=== PATIENT | male | born 1930 | race Caucasian/White ===

== ENCOUNTER 2018-02-15 00:09 | Inpatient (IN) | payer OTHER ==
[~2018-02-15] VITALS: Ht 170.2 cm; Wt 65.5 kg
[2018-02-15 00:47] LABS: BASOPHIL (%) 0.3 % (0-1); BASOPHIL COUNT 0.1 K/uL (0-0.1); EOSINOPHIL (%) 0 % (0-5); HEMATOCRIT 40.9 % (38.0-50.0); HEMOGLOBIN 13.7 G/DL (12.5-16.6); IMMATURE GRANULOCYTE (%) 0.6 % (0.0-0.7); LYMPHOCYTE (%) 2.3 % (15-42); LYMPHOCYTE COUNT 0.4 K/uL (1.0-2.8); MCH 30.2 PG (29.0-34.0); MCHC 33.5 G/DL (30.0-36.0); MCV 90.3 FL (86-99); MONOCYTE (%) 4.9 % (3-12); MONOCYTE COUNT 0.9 K/uL (0-0.8); NEUTROPHIL (%) 91.9 % (45-76); NEUTROPHIL COUNT 16.9 K/uL (1.8-6.4); PLATELET COUNT 409 K/uL (156-360); RBC DIS.WIDTH-CV 12.9 % (11.8-14.6); RBC DIS.WIDTH-SD 42.6 % (39-53); RED BLOOD COUNT 4.53 M/uL (4.00-5.50); WHITE BLOOD COUNT 18.4 K/uL (4.1-10.2)
[2018-02-15 00:56] LABS: CHLORIDE 103 mEq/L (99-109); POTASSIUM 4.3 mEq/L (3.7-5.4)
[2018-02-15 00:57] LABS: SODIUM 139 mEq/L (136-147)
[2018-02-15 00:58] LABS: GLUCOSE 129 mg/dL (70-99)
[2018-02-15 01:02] LABS: CREATININE 0.8 mg/dL (0.6-1.3); GFR ESTIMATE (CALCULATED) > 59 mL/min/ (58.99-99999)
[2018-02-15 01:03] LABS: UREA NITROGEN (BUN) 22 mg/dL (9-23)
[2018-02-15 01:08] LABS: TROP-I INTERPRETATION INDETERMINATE; TROPONIN-I 0.32 ng/mL (0.0-0.30)
[2018-02-15 02:08] LABS: CREATINE KINASE 844 IU/L (1-294)
[2018-02-15 02:22] LABS: APPEARANCE CLEAR ((CLEAR)); BILIRUBIN NEGATIVE; BLOOD SMALL; COLOR YELLOW ((YELLOW)); GLUCOSE (STRIP) NEGATIVE; KETONES 80; LEUKOCYTES NEGATIVE; NITRITE NEGATIVE; PROTEIN (STRIP) 30; SPECIFIC GRAVITY 1.016 (1.000-1.030); UROBILINOGEN 0.2 MG/DL (0.2-1.0)
[2018-02-15 02:29] LABS: BACTERIA NONE SEEN /HPF; EPITHELIAL CELLS RARE /HPF; MUCUS TRACE /LPF; UCUL ADDED? NO; WHITE BLOOD CELLS 0-5 /HPF (0-5)
[2018-02-15] MEDS ORDERED: LEVOTHYROXINE100 MCG PO (08:04)
[2018-02-15 16:05] VITALS: BP 100/57
[2018-02-15 19:43] VITALS: BP 100/52
[2018-02-15 23:37] VITALS: BP 110/50
[2018-02-16 03:20] VITALS: BP 102/61
[2018-02-16 07:49] VITALS: BP 128/65
[2018-02-16 11:58] VITALS: BP 126/703
[2018-02-16 12:25] LABS: BASOPHIL (%) 0.4 % (0-1); EOSINOPHIL (%) 2.5 % (0-5); EOSINOPHIL COUNT 0.3 K/uL (0-0.3); HEMATOCRIT 35.9 % (38.0-50.0); IMMATURE GRANULOCYTE (%) 0.4 % (0.0-0.7); LYMPHOCYTE (%) 8.8 % (15-42); LYMPHOCYTE COUNT 0.9 K/uL (1.0-2.8); MCH 30.2 PG (29.0-34.0); MCHC 32.3 G/DL (30.0-36.0); MCV 93.5 FL (86-99); MONOCYTE (%) 5.2 % (3-12); MONOCYTE COUNT 0.5 K/uL (0-0.8); NEUTROPHIL (%) 82.7 % (45-76); NEUTROPHIL COUNT 8.2 K/uL (1.8-6.4); PLATELET COUNT 339 K/uL (156-360); RBC DIS.WIDTH-CV 13.4 % (11.8-14.6); RBC DIS.WIDTH-SD 45.7 % (39-53); RED BLOOD COUNT 3.84 M/uL (4.00-5.50)
[2018-02-16 12:31] LABS: HEMOGLOBIN 11.6 G/DL (12.5-16.6)
[2018-02-16 12:55] LABS: CHLORIDE 109 MEQ/L (99-109); CREATININE 0.6 MG/DL (0.6-1.3); GFR ESTIMATE (CALCULATED) > 59 mL/min/ (58.99-99999); GLUCOSE 109 mg/dL (70-99); SODIUM 143 MEQ/L (136-147); UREA NITROGEN (BUN) 21 mg/dL (9-23)
[2018-02-16 16:13] VITALS: BP 127/64
[2018-02-16 19:44] VITALS: BP 122/69
[2018-02-16 23:45] VITALS: BP 123/68
[2018-02-17 08:05] VITALS: BP 132/69
[2018-02-17 12:02] VITALS: BP 133/66
[2018-02-17 16:19] VITALS: BP 148/72
[2018-02-17 20:10] VITALS: BP 116/56
[2018-02-18 00:07] VITALS: BP 110/60
[2018-02-18 07:18] VITALS: BP 104/55
[2018-02-18] MEDS ORDERED: AMOXICILLIN500 MG PO (08:15)
== END 2018-02-18 13:28 | disposition home health service (06) | DRG 194 ==
LOC: EME → EDBD 00:09 → EME 00:09 → EDOF 04:36 → 2EAST 04:36 → ENRESERV 04:40 → 2EAST 15:23
PROVIDERS: Emergency Medicine; Internal Medicine
DX: J18.9 Pneumonia, unspecified organism (principal); R55 Syncope and collapse; S81.802A Unspecified open wound, left lower leg, initial encounter; W01.0XXA Fall on same level from slipping, tripping and stumbling without subsequent striking against object, initial encounter; R74.8 Abnormal levels of other serum enzymes; F03.90 Unspecified dementia, unspecified severity, without behavioral disturbance, psychotic disturbance, mood disturbance, and anxiety; E03.9 Hypothyroidism, unspecified; E78.5 Hyperlipidemia, unspecified; I10 Essential (primary) hypertension; M25.512 Pain in left shoulder; M62.82 Rhabdomyolysis
CPT/HCPCS: 70450; 71046; 72125; 73030; 73080; 73522; 80048; 81003; 82550; 83605; 84484; 85025; 87040; 93005; 97530 GP; 99281; 99285; A6260; J0696; J1644; J7040; J7042